=== PATIENT | male | born 1945 | race Caucasian/White ===

== ENCOUNTER → 2016-05-30 | Outpatient (CLI) | payer MEDICARE, BC ==
[2016-05-30 08:28] LABS: CHLORIDE,CL 100 mmol/L (98-110); SODIUM,NA 134 mmol/L (136-146)
== END ==
LOC: MW.CHFP 07:41
PROVIDERS: ATTEND Emergency Medicine
DX: I10 Essential (primary) hypertension (principal); E11.9 Type 2 diabetes mellitus without complications; E78.00 Pure hypercholesterolemia, unspecified; Z79.4 Long term (current) use of insulin; M54.2 Cervicalgia; M54.5 Low back pain
CPT/HCPCS: 36415; 80053; 80061; 82044; 83036; 99214

== ENCOUNTER 2017-06-27 09:24 | Day surgery (SDC) | payer MEDICARE, BC ==
[~2017-06-27 09:24] MED LIST: Lactated Ringers 1,000 ML IV SCH; Lidocaine 2% 5 ML SDV ONE; Propofol 200 MG/20 ML SDV ONE; Sodium Chloride 0.9% 10 ML Syringe FLUSH PRN; Sodium Chloride 0.9% 2.5 ML Syringe FLUSH PRN; fentaNYL 100 MCG/2 ML SDV ONE
--- NOTE | 2017-06-27 09:46 | PCM.PREANE ---
Preanesthetic Assessment - Anesthesia/Transfusion/Family Hx Anesthesia History: Prior Anesthesia Without Reaction Other Type of Anesthesia Reaction Comment: Denies any known problem in past Family History of Anesthesia Reaction: No Transfusion History: No Prior Transfusion(s) - Review of Systems General: No Symptoms Pulmonary: No Symptoms Cardiovascular: No Symptoms Neurological: No Symptoms Other: Reports: None - Physical Assessment NPO Status Date: 06/26/17 Height: 1.83 m Weight: 120.656 kg ASA Class: 2 Mental Status: Alert & Oriented x3 Airway Class: Mallampati = 1 Dentition: Reports: Normal Dentition ROM/Head Extension: Full Lungs: Clear to Auscultation, Normal Respiratory Effort Cardiovascular: Regular Rate, Regular Rhythm - Allergies Allergies/Adverse Reactions: Allergies Allergy/AdvReac Type Severity Reaction Status Date / Time glimepiride [From Amaryl] Allergy Dizziness Verified 06/22/17 12:27 - Anesthesia Plan Pre-Op Medication Ordered: None - Acknowledgements Anesthesia Type Planned: MAC Pt an Appropriate Candidate for the Planned Anesthesia: Yes Alternatives and Risks of Anesthesia Discussed w Pt/Guardian: Yes Pt/Guardian Understands and Agrees with Anesthesia Plan: Yes Additional Comments: PMH: [place] (is not wearing hearing aids today), DM (qHS lantus, am sugar 140), GERD, HTN. EUL[place] (uses CPAP), PreAnesthesia Questionnaire HEENT History: Reports: Hard of Hearing, Other (See Below) Other HEENT History: wears glasses, macario hearing aids Cardiovascular History: Reports: High Cholesterol, Hypertension Respiratory History: Reports: Sleep Apnea Other Respiratory History: uses CPAP Gastrointestinal History: Reports: GERD, Hiatal Hernia Genitourinary History: Reports: None Musculoskeletal History: Reports: Back Pain, Chronic, Fracture, Osteoarthritis Other Musculoskeletal History: fx thumbs Neurological History: Reports: Other (See Below) Other Neuro History: essential tremors Endocrine/Metabolic History: Reports: Diabetes, Type II, Obesity/BMI 30+ Oncologic (Cancer) History: Reports: Basal Cell Carcinoma Dermatologic History: Reports: Eczema - Past Surgical History Head Surgeries/Procedures: Reports: None HEENT Surgical History: Reports: Cataract Surgery, Tonsillectomy Other HEENT Surgeries/Procedures: stapedectomy with stpes prosthesis GI Surgical History: Reports: Colonoscopy Musculoskeletal Surgical History: Reports: Other (See Below) Other Musculoskeletal Surgeries/Procedures:: hx hand surgery Dermatological Surgical History: Reports: Skin Biopsy - SUBSTANCE USE Smoking Status *Q: Never Smoker Days Per Week of Alcohol Use: 0 Number of Drinks Per Day: 0 Total Drinks Per Week: 0 Recreational Drug Use History: No - HOME MEDS Home Medications: Home Meds Aspirin [Halfprin] 1 tab PO DAILY 04/21/14 [History] Clobetasol Propionate/Emoll [Clobetasol Emollnt 0.05% Foam] 1 applic TOP ASDIRECTED 04/21/14 [History] Insulin Glargine,Hum.Rec.Anlog [Lantus Solostar] 1 injection SQ BEDTIME [History] Lisinopril 10 tab PO BEDTIME 04/21/14 [History] Pioglitazone [Actos] 30 mg PO DAILY 04/21/14 [History] Propranolol HCl [Inderal LA] 80 mg PO BRK 04/21/14 [History] Simvastatin [Zocor] 40 mg PO BEDTIME 04/21/14 [History] glipiZIDE [Glipizide ER] 10 mg PO ACBREAKFAST 04/21/14 [History] metFORMIN [Glucophage XR] 1,500 mg PO BIDMEALS 04/21/14 [History] Calcium Carbonate [Calcium] 1 tab PO DAILY 06/22/17 [History] Cholecalciferol (Vitamin D3) [Vitamin D3] 1,000 units PO DAILY 06/22/17 [History ] Cinnamon Bark [Cinnamon] 500 mg PO DAILY 06/22/17 [History] Clobetasol Propionate/Emoll [Olux-E 0.05% Foam] 1 applic TOP ASDIRECTED [History] Diclofenac Sodium [Voltaren] 75 mg PO BID PRN 06/22/17 [History] Fexofenadine HCl 180 mg PO ASDIRECTED PRN 06/22/17 [History] Fish Oil/[place]-3 Fatty Acids [Fish Oil 1,000 MG] 1 tab PO DAILY 06/22/17 [ History] Gabapentin [Neurontin] 600 mg PO DAILY 06/22/17 [History] Glucosamine Sulfate 2KCl [Glucosamine] 1 tab PO BID 06/22/17 [History] Lutein/Minerals/Vit A,C & E [Ocuvite] 1 tab PO DAILY 06/22/17 [History] Multivitamin [Multiple Vitamins] 1 tab PO DAILY 06/22/17 [History] Omeprazole 20 mg PO ASDIRECTED PRN 06/22/17 [History] Primidone 50 mg PO DAILY 06/22/17 [History] diphenhydrAMINE [Benadryl] 1 tab PO BEDTIME 06/22/17 [History] glipiZIDE [Glipizide ER] 5 mg PO BEDTIME 06/22/17 [History] amLODIPine Besylate [Amlodipine Besylate] 10 mg PO DAILY 06/23/17 [History] - CURRENT (IN HOUSE) MEDS Current Meds: Current Medications Lactated Ringer's (Ringers, Lactated) 1,000 mls @ 125 mls/hr IV ASDIRECTED JOSE ANTONIO Sodium Chloride (Saline Flush) 10 ml FLUSH ASDIRECTED PRN PRN Reason: Keep Vein Open Sodium Chloride (Saline Flush) 2.5 ml FLUSH ASDIRECTED PRN PRN Reason: Keep Vein Open Sodium Chloride (Saline Flush) 10 ml FLUSH ASDIRECTED PRN PRN Reason: Keep Vein Open Sodium Chloride (Saline Flush) 2.5 ml FLUSH ASDIRECTED PRN PRN Reason: Keep Vein Open Discontinued Medications Fentanyl (Sublimaze) Confirm Administered Dose 100 mcg .ROUTE .STK-MED ONE Stop: 06/27/17 08:27 Lidocaine (Xylocaine-Mpf 2%) Confirm Administered Dose 5 ml .ROUTE .STK-MED ONE Stop: 06/27/17 08:27 Propofol (Diprivan 20 Ml) Confirm Administered Dose 400 mg .ROUTE .STK-MED ONE Stop: 06/27/17 08:28
[2017-06-27] MEDS ORDERED: Propofol 200 MG/20 ML SDV ONE (11:21)
--- NOTE | 2017-06-27 12:33 | PCM.OPNOTE ---
- General Post-Op/Procedure Note Date of Surgery/Procedure: 06/27/17 Operative Procedure(s): EGD and colonoscopy Findings: Gastritis, hyperplastic gastric polyps, diverticulosis Pre Op Diagnosis: Gastritis, change in bowel habits Post-Op Diagnosis: Gastritis, hyperplastic polyps, diverticulosis Anesthesia Technique: RICARDO Primary Surgeon: Traci Sheets Condition: Good
--- NOTE | 2017-06-27 12:44 | PCM.POSTAN ---
POST ANESTHESIA ASSESSMENT - MENTAL STATUS Mental Status: Alert, Oriented - RESPIRATORY Respiratory Status: Respiratory Rate WNL, Airway Patent, O2 Saturation Stable - CARDIOVASCULAR CV Status: Pulse Rate WNL, Blood Pressure Stable - GASTROINTESTINAL GI Status: No Symptoms - POST OP HYDRATION Hydration Status: Adequate & Stable
--- NOTE | 2017-06-27 12:45 | PCM48HPAN ---
Post Anesthesia Note - EVALUATION WITHIN 48HRS OF ANESTHETIC Vital Signs in Normal Range: Yes Patient Participated in Evaluation: Yes Respiratory Function Stable: Yes Airway Patent: Yes Cardiovascular Function Stable: Yes Hydration Status Stable: Yes Pain Control Satisfactory: Yes Nausea and Vomiting Control Satisfactory: Yes Mental Status Recovered: Yes Resp Rate: 15
[2017-06-27 13:09] VITALS: BP 127/70
--- NOTE | 2017-06-27 22:48 | OR ---
SURGEON: TRACI SHEETS MD DATE OF PROCEDURE: 06/27/2017 PREOPERATIVE DIAGNOSIS: Gastric reflux, change in bowel habits. POSTOPERATIVE DIAGNOSES: 1. Mild gastritis. 2. Hyperplastic gastric polyps in the body of the stomach. 3. Diverticulosis. PROCEDURES PERFORMED: Diagnostic esophagogastroduodenoscopy and colonoscopy. ENDOSCOPIST: Traci Sheets MD ANESTHESIA: MAC. INSTRUMENT USED: Olympus endoscope and colonoscope. EXTENT OF EXAM: To the second portion of the duodenum, to the cecum. PREPARATION: Fair-poor LIMITATIONS: None. INDICATION FOR EXAMINATION: The patient is a 71-year-old male who presents with worsening gastric reflux and change in his bowel habits. The decision was made to perform a diagnostic EGD and colonoscopy. We discussed both procedures as well as their expected perioperative course. We discussed the risks including bleeding, infection, or damage to surrounding structures including perforation. The patient verbalized understanding and wishes to proceed. PROCEDURE IN DETAIL: The patient was brought into the endoscopy suite and placed in a beach chair position. A time-out was completed verifying the patient's name, age, date of , allergies, and procedure to be performed. A bite block was placed in the patient's mouth and monitored anesthesia care was induced. Continuous oxygen was provided via nasal cannula throughout the procedure. After adequate sedation was achieved, a well-lubricated endoscope was placed in the patient's mouth and advanced under direct visualization to the level of second portion of the duodenum. This appeared normal and a photograph was taken. The scope was then fully withdrawn while examining the color, texture, anatomy, and integrity of the mucosa of the upper GI tract. The intestinal mucosa appeared normal. The scope was brought in the stomach and a photograph was taken of the pylorus as well as the GE junction which appeared normal. The patient was noted to have multiple hyperplastic polyps along the body of the stomach. Biopsies were taken of the gastric antrum, body, and fundus as the mucosa appeared to be mildly inflamed. Biopsies were taken of the largest of the hyperplastic polyps, which was still under 1 cm. The scope was then brought into the distal esophagus and a photograph was taken of the Z-line. This appeared normal. The remainder of the esophageal mucosa was free of pathology. The scope was then withdrawn and this portion of procedure was terminated. The patient was then placed in a left lateral decubitus position. A digital rectal exam was performed. This exam was within normal limits. A well- lubricated colonoscope was inserted in the rectum and advanced under direct visualization to the level of the cecum. The cecum was identified by both visual and anatomic landmarks. A photograph was taken of the cecal cap, however, I was unable to retroflex the scope within the cecum due to looping of the scope more proximally. The scope was then fully withdrawn while examining the color, texture, anatomy, and integrity of the mucosa from the cecum to the anal canal. My examination was limited by the poor prep in the ascending and transverse colon. A large amount of irrigation was performed to identify any smaller lesions. The patient was noted to have diverticulosis throughout the colon. The remainder of the exam appeared normal. The scope was brought into the rectum and retroflexed to allow visualization of the anal canal opening. This appeared normal and a photograph was taken. The cecum to anus time was greater than 6 minutes. The scope was then straightened out and fully withdrawn. The patient tolerated the procedure well and was taken to PACU in stable condition. ENDOSCOPIC DIAGNOSES: 1. Mild gastritis. 2. Hyperplastic gastric polyps in the body of the stomach. 3. Diverticulosis. RECOMMENDATIONS: Follow up in clinic in 2 weeks. YOLANDA CEJA /[id number] MERRILL
== END 2017-06-27 13:00 | disposition home or self-care (01) ==
LOC: MW.SDS 09:24
PROVIDERS: ATTEND Surgery
DX: K29.50 Unspecified chronic gastritis without bleeding (principal); K31.7 Polyp of stomach and duodenum; K57.30 Diverticulosis of large intestine without perforation or abscess without bleeding; K21.9 Gastro-esophageal reflux disease without esophagitis; I10 Essential (primary) hypertension; G47.33 Obstructive sleep apnea (adult) (pediatric); E78.00 Pure hypercholesterolemia, unspecified; M19.90 Unspecified osteoarthritis, unspecified site; G25.0 Essential tremor; E11.40 Type 2 diabetes mellitus with diabetic neuropathy, unspecified; E66.9 Obesity, unspecified; Z68.36 Body mass index [BMI] 36.0-36.9, adult; Z79.4 Long term (current) use of insulin; Z79.82 Long term (current) use of aspirin; Z79.899 Other long term (current) drug therapy; Z88.8 Allergy status to other drugs, medicaments and biological substances; Z99.89 Dependence on other enabling machines and devices
CPT/HCPCS: 00731; 82962; 88305; 88312; J2704; J3010; J7120

== ENCOUNTER 2020-04-01 16:15 | Emergency (ER) | payer MEDICARE, BC ==
[2020-04-01] MEDS ORDERED: ceFAZolin 1 GM in Premix Bag 1 BAG IV ONE (16:32)
[2020-04-01] MEDS ORDERED: Sodium Chloride 0.9% 2.5 ML Syringe FLUSH PRN (16:32)
[2020-04-01] MEDS ORDERED: Sodium Chloride 0.9% 10 ML Syringe FLUSH PRN (16:32)
[2020-04-01] MEDS ORDERED: Diphtheria,Pertussis(Acell),Tetanus Vaccine 0.5 ML Syringe IM ONE (16:48)
--- NOTE | 2020-04-01 16:52 | EDM.PDOC ---
ED HPI GENERAL MEDICAL PROBLEM - General Chief Complaint: Upper Extremity Injury/Pain Stated Complaint: FINGER RT HAND LACERATION Time Seen by Provider: 04/01/20 16:16 Source of Information: Reports: Patient History Limitations: Reports: No Limitations - History of Present Illness INITIAL COMMENTS - FREE TEXT/NARRATIVE: 74-year-old male past medical history obesity, diabetes, hypertension presents for left third digit amputation injury. Patient was using a soaker meat when he accidentally stuck his hand in a soaker meat. He was able to save the distal tip of his finger which is relatively intact. He denies any other injuries. He is uncertain of his last tetanus vaccination. Left middle finger Pain Score (Numeric/FACES): 0 - Related Data Allergies Allergy/AdvReac Type Severity Reaction Status Date / Time glimepiride [From Amaryl] Allergy Dizziness Verified 04/01/20 16:40 Home Meds: Home Meds Aspirin [Halfprin] 1 tab PO DAILY 04/21/14 [History] Clobetasol Propionate/Emoll [Clobetasol Emollnt 0.05% Foam] 1 applic TOP ASDIRECTED 04/21/14 [History] Insulin Glargine,Hum.Rec.Anlog [Lantus Solostar] 1 injection SQ BEDTIME 04/21/14 [History] Lisinopril 10 tab PO BEDTIME 04/21/14 [History] Pioglitazone [Actos] 30 mg PO DAILY 04/21/14 [History] Propranolol HCl [Inderal LA] 80 mg PO BRK 04/21/14 [History] Simvastatin [Zocor] 40 mg PO BEDTIME 04/21/14 [History] glipiZIDE [Glipizide ER] 10 mg PO ACBREAKFAST 04/21/14 [History] metFORMIN [Glucophage XR] 1,500 mg PO BIDMEALS 04/21/14 [History] Calcium Carbonate [Calcium] 1 tab PO DAILY 06/22/17 [History] Cholecalciferol (Vitamin D3) [Vitamin D3] 1,000 units PO DAILY 06/22/17 [History] Cinnamon Bark [Cinnamon] 500 mg PO DAILY 06/22/17 [History] Clobetasol Propionate/Emoll [Olux-E 0.05% Foam] 1 applic TOP ASDIRECTED 06/22/17 [History] Diclofenac Sodium [Voltaren] 75 mg PO BID PRN 06/22/17 [History] Fexofenadine HCl 180 mg PO ASDIRECTED PRN 06/22/17 [History] Fish Oil/[place]-3 Fatty Acids [Fish Oil 1,000 MG] 1 tab PO DAILY 06/22/17 [History] Gabapentin [Neurontin] 600 mg PO DAILY 06/22/17 [History] Glucosamine Sulfate Dipot Chlr [Glucosamine] 1 tab PO BID 06/22/17 [History] Lutein/Minerals/Vit A,C & E [Ocuvite] 1 tab PO DAILY 06/22/17 [History] Multivitamin [Multiple Vitamins] 1 tab PO DAILY 06/22/17 [History] Omeprazole 20 mg PO ASDIRECTED PRN 06/22/17 [History] Primidone 50 mg PO DAILY 06/22/17 [History] diphenhydrAMINE [Benadryl] 1 tab PO BEDTIME 06/22/17 [History] glipiZIDE [Glipizide ER] 5 mg PO BEDTIME 06/22/17 [History] amLODIPine Besylate [Amlodipine Besylate] 10 mg PO DAILY 06/23/17 [History] cephALEXin [Keflex] 500 mg PO Q8H 7 Days #21 cap 04/01/20 [Rx] oxyCODONE HCl/Acetaminophen [Percocet 5-325 mg Tablet] 1 each PO Q4H PRN #18 tablet 04/01/20 [Rx] Past Medical History HEENT History: Reports: Hard of Hearing, Other (See Below) Other HEENT History: wears glasses, macario hearing aids Cardiovascular History: Reports: Hypertension Respiratory History: Reports: Sleep Apnea Other Respiratory History: uses CPAP Gastrointestinal History: Reports: GERD, Hiatal Hernia Genitourinary History: Reports: None Musculoskeletal History: Reports: Back Pain, Chronic, Fracture, Osteoarthritis Other Musculoskeletal History: fx thumbs Neurological History: Reports: Other (See Below) Other Neuro History: essential tremors Endocrine/Metabolic History: Reports: Diabetes, Type II Oncologic (Cancer) History: Reports: Basal Cell Carcinoma Dermatologic History: Reports: Eczema - Infectious Disease History Infectious Disease History: Reports: None - Past Surgical History Head Surgeries/Procedures: Reports: None HEENT Surgical History: Reports: Cataract Surgery, Tonsillectomy Other HEENT Surgeries/Procedures: stapedectomy with stpes prosthesis GI Surgical History: Reports: Colonoscopy Musculoskeletal Surgical History: Reports: Other (See Below) Other Musculoskeletal Surgeries/Procedures:: hx hand surgery Dermatological Surgical History: Reports: Skin Biopsy Social & Family History - Family History Family Medical History: No Pertinent Family History - Tobacco Use Tobacco Use Status *Q: Never Tobacco User - Recreational Drug Use Recreational Drug Use: No Review of Systems - Review of Systems Review Of Systems: Comprehensive ROS is negative, except as noted in HPI. ED EXAM, GENERAL - Physical Exam Exam: See Below Exam Limited By: No Limitations General Appearance: Alert, WD/WN, No Apparent Distress Throat/Mouth: Normal Voice, No Airway Compromise Head: Atraumatic, Normocephalic Respiratory/Chest: No Respiratory Distress, No Accessory Muscle Use Cardiovascular: Normal Peripheral Pulses Extremities: Other (fingertip amputation injury to L 3rd digit, nail germinal matrix intact, no bony protuberance) Neurological: Alert, Normal Gait Psychiatric: Normal Affect, Normal Mood Course - Vital Signs Last Recorded V/S: Last Vital Signs Temp 97.0 F 04/01/20 16:40 Pulse 87 04/01/20 16:40 Resp 18 04/01/20 16:40 BP 182/91 H 04/01/20 16:40 Pulse Ox 97 04/01/20 16:40 - Orders/Labs/Meds Orders: Active Orders 24 hr Category Date Time Status Vaccines to be Administered [RC] PER UNIT ROUTINE Care 04/01/20 16:48 Active Sodium Chloride 0.9% [Saline Flush] Med 04/01/20 16:32 Active 10 ml FLUSH ASDIRECTED PRN Sodium Chloride 0.9% [Saline Flush] Med 04/01/20 16:32 Active 2.5 ml FLUSH ASDIRECTED PRN ceFAZolin [Ancef 1 GM/50 ML] 1 gm Med 04/01/20 16:32 Active Premix Bag 1 bag IV ONETIME Saline Lock Insert [OM.PC] Stat Oth 04/01/20 16:32 Ordered Medication Orders Cefazolin Sodium/Dextrose 1 gm (/ Premix) 50 mls @ 100 mls/hr IV ONETIME ONE Stop: 04/01/20 17:01 Last Admin: 04/01/20 16:55 Dose: 100 mls/hr Documented by: [id number] Sodium Chloride (Saline Flush) 10 ml FLUSH ASDIRECTED PRN PRN Reason: Keep Vein Open Last Admin: 04/01/20 16:39 Dose: 10 ml Documented by: [id number] Sodium Chloride (Saline Flush) 2.5 ml FLUSH ASDIRECTED PRN PRN Reason: Keep Vein Open Last Admin: 04/01/20 16:39 Dose: 2.5 ml Documented by: [id number] Meds: Medications Generic Name Dose Route Start Last Admin Trade Name Freq PRN Reason Stop Dose Admin Cefazolin Sodium/Dextrose 1 gm 50 mls @ 100 mls/hr 04/01/20 16:32 04/01/20 16:55 / Premix IV 04/01/20 17:01 100 mls/hr ONETIME ONE Administration Sodium Chloride 10 ml 04/01/20 16:32 04/01/20 16:39 Saline Flush FLUSH 10 ml ASDIRECTED PRN Administration Keep Vein Open Sodium Chloride 2.5 ml 04/01/20 16:32 04/01/20 16:39 Saline Flush FLUSH 2.5 ml ASDIRECTED PRN Administration Keep Vein Open Discontinued Medications Generic Name Dose Route Start Last Admin Trade Name Freq PRN Reason Stop Dose Admin Diphtheria/Tetanus/Acell Pertussis 0.5 ml 04/01/20 16:48 04/01/20 16:54 Boostrix IM 04/01/20 16:49 0.5 ml .ONCE ONE Administration - Re-Assessments/Exams Free Text/Narrative Re-Assessment/Exam: 04/01/20 17:[address] Booth who has reviewed images of the patient's hand. Recommends nonadherent dressing and follow-up with hand surgery in [place]. Information provided to patient. Will give 1 dose of Ancef in the ED as well as a tetanus booster and will DC with p.o. antibiotics. Departure - Departure Time of Disposition: 16:49 Disposition: Home, Self-Care 01 Condition: Good Clinical Impression: Fingertip avulsion Qualifiers: Encounter type: initial encounter Qualified Code(s): S61.209A - Unspecified open wound of unspecified finger without damage to nail, initial encounter - Discharge Information Prescriptions: cephALEXin [Keflex] 500 mg PO Q8H 7 Days #21 cap Instructions: Traumatic Finger Amputation Referrals: Chu Whitt MD [Primary Care Provider] - Forms: ED Department Discharge Additional Instructions: You have suffered a traumatic fingertip amputation. You were given 1 dose of IV antibiotics and you were sent home on oral antibiotics. You need to follow-up with a hand surgeon as this will likely require surgery for proper healing. [facility] Dr. Rachel Swanson MD [phone] [facility] [place] [address] [address] Floor The following information is given to patients seen in the emergency department who are being discharged to home. This information is to outline your options for follow-up care. We provide all patients seen in our emergency department with a follow-up referral. The need for follow-up, as well as the timing and circumstances, are variable depending upon the specifics of your emergency department visit. If you don't have a primary care physician on staff, we will provide you with a referral. We always advise you to contact your personal physician following an emergency department visit to inform them of the circumstance of the visit and for follow-up with them and/or the need for any referrals to a consulting specialist. The emergency department will also refer you to a specialist when appropriate. This referral assures that you have the opportunity for follow-up care with a specialist. All of these measure are taken in an effort to provide you with optimal care, which includes your follow-up. Under all circumstances we always encourage you to contact your private physician who remains a resource for coordinating your care. When calling for follow-up care, please make the office aware that this follow-up is from your recent emergency room visit. If for any reason you are refused follow-up, please contact the [facility] Emergency Department at and asked to speak to the emergency department charge nurse. Please follow up with your primary care physician. If you do not have a primary care physician, see below: [facility] [address] [place] [id number] [facility] [address] [place] [address] [facility] [address] [place] [address] Sepsis Event Note (ED) - Evaluation Sepsis Screening Result: No Definite Risk - Focused Exam Vital Signs: Vital Signs Temp Pulse Resp BP Pulse Ox 04/01/20 16:40 97.0 F 87 18 182/91 H 97 - My Orders Last 24 Hours: My Active Orders 04/01/20 16:32 Sodium Chloride 0.9% [Saline Flush] 10 ml FLUSH ASDIRECTED PRN Sodium Chloride 0.9% [Saline Flush] 2.5 ml FLUSH ASDIRECTED PRN ceFAZolin [Ancef 1 GM/50 ML] 1 gm Premix Bag 1 bag IV ONETIME Saline Lock Insert [OM.PC] Stat 04/01/20 16:48 Vaccines to be Administered [RC] PER UNIT ROUTINE - Assessment/Plan Last 24 Hours: My Active Orders 04/01/20 16:32 Sodium Chloride 0.9% [Saline Flush] 10 ml FLUSH ASDIRECTED PRN Sodium Chloride 0.9% [Saline Flush] 2.5 ml FLUSH ASDIRECTED PRN ceFAZolin [Ancef 1 GM/50 ML] 1 gm Premix Bag 1 bag IV ONETIME Saline Lock Insert [OM.PC] Stat 04/01/20 16:48 Vaccines to be Administered [RC] PER UNIT ROUTINE
--- NOTE | 2020-04-01 16:53 | CR ---
Indication: Finger tip avulsion Comparison: None available. Technique: AP and lateral views left hand were obtained Findings: There is traumatic avulsion at the distal 3rd phalanx. No other displaced fractures appreciated. The joint spaces are grossly preserved. There is mild superficial soft tissue swelling. Impression: Superficial soft tissue swelling of the distal 3rd digit with traumatic avulsion of the distal 3rd phalanx. Dictated by Alexis Burgos MD @ Apr 01 2020 4:50PM Signed by Dr. Alexis Burgos @ Apr 01 2020 4:51PM
[2020-04-01 18:10] VITALS: BP 155/49; PULSE 81
== END 2020-04-01 18:10 | disposition home or self-care (01) ==
LOC: MW.ED 16:15
DX: S61.303A Unspecified open wound of left middle finger with damage to nail, initial encounter (principal); I10 Essential (primary) hypertension; E11.9 Type 2 diabetes mellitus without complications; K21.9 Gastro-esophageal reflux disease without esophagitis; E66.9 Obesity, unspecified; Z79.4 Long term (current) use of insulin; Z88.8 Allergy status to other drugs, medicaments and biological substances; Z79.82 Long term (current) use of aspirin; Z79.899 Other long term (current) drug therapy; Z23 Encounter for immunization; Z68.35 Body mass index [BMI] 35.0-35.9, adult; W31.9XXA Contact with unspecified machinery, initial encounter
CPT/HCPCS: 73120; 90471; 96365; 99283; J0690

== ENCOUNTER 2020-04-17 11:58 | Emergency (ER) | payer MEDICARE, BC ==
[2020-04-17] MEDS ORDERED: Ketorolac 30 MG/ML SDV IVPUSH ONE (12:35)
--- NOTE | 2020-04-17 12:53 | CR ---
Indication: Recent injury Comparison: Three views left fingers April 01, 2020 Technique: AP, Lateral, and Oblique views left 3rd digit were obtained Findings: Again seen is traumatic amputation of the distal 3rd phalanx with bony fragments. There is no new acute osseous abnormality. The joint spaces are grossly preserved. There is persistent fusiform soft tissue swelling of the 3rd digit. Impression: Re-demonstration of traumatic amputation of the distal 3rd digit with persistent fusiform soft tissue swelling and small residual bony fragments. Dictated by Alexis Burgos MD @ Apr 17 2020 12:45PM Signed by Dr. Alexis Burgos @ Apr 17 2020 12:51PM
--- NOTE | 2020-04-17 13:36 | EDM.PDOC ---
ED HPI GENERAL MEDICAL PROBLEM - General Chief Complaint: Upper Extremity Injury/Pain Stated Complaint: POSSIBLE INFECTION FINGER Time Seen by Provider: 04/17/20 12:05 - History of Present Illness INITIAL COMMENTS - FREE TEXT/NARRATIVE: CHIEF COMPLAINT(S): Possible finger infection HISTORY OF PRESENT ILLNESS: This is a 74-year-old man with a past medical history of hypertension, hyperlipidemia with recent distal third right digit avulsion status post flap repair who comes to the emergency department with a chief complaint of possible finger infection. The patient states that he had a surgery approximately 2 weeks ago after cutting off his right third distal finger. He states that they did a flap and sutured it. He states that he was prescribed Keflex 3 times a day and was told to call if anything change. He states that starting since last night he started to notice that there was some pus drainage which is white from the distal tip of his finger. He states that there is some tenderness but it has not increased and there is some redness at the distal tip but it has not spread. He describes his pain as 2-4 out of 10 without any radiation up his arm. He denies any numbness, tingling, weakness. He states that he called Dr. Gibson's office and he is in surgery all day so they told him to come to the emergency department for us to contact them if he had any questions. REVIEW OF SYSTEMS: Skin: Positive for purulent drainage coming out of third right distal finger MSK: Positive for right finger pain Neurological: Denies numbness, tingling, weakness PAST MEDICAL HISTORY: As per history of present illness and as reviewed below otherwise noncontributory. SURGICAL HISTORY: As per history of present illness and as reviewed below otherwise noncontributory. SOCIAL HISTORY: As per history of present illness and as reviewed below otherwise noncontributory. FAMILY HISTORY: As per history of present illness and as reviewed below otherwise noncontributory. EXAMINATION OF ORGAN SYSTEMS/BODY AREAS: Constitutional: Blood pressure is 160/107, heart rate 77, respiratory rate 18 with an oxygen saturation 98% on room air. Temperature 35.8 General: Overall well-appearing man who is in no acute distress. Psychiatric: Appropriate mood and affect. Eyes: No scleral icterus or conjunctival erythema ENMT: Moist mucous membranes. No pharyngeal erythema Cardiovascular: Regular, rate, and rhythm. No gallops, murmurs, or rubs. Bilateral upper extremity pulses symmetric and intact. Respiratory: Lungs clear to auscultation bilaterally. No wheezes, rales, or rhonchi. Musculoskeletal: The patient has full range of motion of his right third digit. The DIP is missing secondary to avulsion. There is some purulent drainage/white-colored drainage coming out of the underneath side of the nail where the flap is sutured. Otherwise the other part of the flap looks well- healing. There is some distal erythema of the finger which the patient states is unchanged. Mild tenderness to palpation. Skin: As noted above Neurological: Alert, GCS 15 distal sensation is intact MEDICAL DECISION MAKING AND COURSE IN THE ED WITH INTERPRETATION/REVIEW OF DIAGNOSTIC STUDIES: This is a 74-year-old man with a past medical history of hypertension hyperlipidemia with recent avulsion of his third right digit at the DIP status post flap who comes to the emergency department with concern for possible distal right tip finger infection. At this time will obtain a repeat right finger x-ray and obtain labs including CBC, CRP and ESR. Laboratory: CBC is unremarkable. CRP is 0.30. The radiological images were viewed by myself along with reading the report from the radiologist. Right third digit x-ray reveals redemonstration of traumatic amputation of the distal third digit with persistent fusiform swelling and small residual bony fragments. No acute osseous abnormality. After labs and imaging I did contact [facility] in [place] and spoke with Dr. Riley who is a partner of his surgeon. I did discuss my findings and imaging and laboratory results. At this time he stated that he should continue with Keflex until follow-up. I did discuss the results with the patient and my discussion with the surgeons. I provided the patient with a prescription for continued use of Keflex and they were instructed to return for any new or worsening symptoms. They are amenable to discharge at this time and had no further questions. DISPOSITION: The patient was discharged home in stable condition. The patient will follow up with surgeon on their scheduled appointment in approximately 4 days CONDITION: Fair PROCEDURES: None FINAL IMPRESSION(S)/DIAGNOSES: 1. Acute possible right distal third digit purulent infection Perez Kauffman M.D. Right Finger-Middle Pain Score (Numeric/FACES): 2 - Related Data Allergies Allergy/AdvReac Type Severity Reaction Status Date / Time glimepiride [From Amaryl] Allergy Dizziness Verified 04/17/20 12:15 Home Meds: Home Meds Aspirin 81 mg PO DAILY 04/01/20 [History] Calcium Carbonate [Calcium] 1 tab PO ASDIRECTED 04/01/20 [History] Cholecalciferol (Vitamin D3) [Vitamin D] 1,000 mg PO DAILY 04/01/20 [History] Clobetasol Propionate/Emoll [Olux-E 0.05% Foam] 1 dose TOP ASDIRECTED 04/01/20 [History] Clobetasol [Clobetasol Propionate 0.05%] 1 dose TOP ASDIRECTED 04/01/20 [History] Diclofenac Sodium 75 mg PO BID 04/01/20 [History] Fexofenadine HCl 180 mg PO DAILY 04/01/20 [History] Fish Oil/[place]-3 Fatty Acids [Fish Oil 1,000 MG] 1 cap PO DAILY 04/01/20 [History] Gabapentin [Neurontin] 600 mg PO ASDIRECTED 04/01/20 [History] Glucosamine HCl [Glucosamine] 1,000 mg PO BID 04/01/20 [History] Insulin Aspart [NovoLOG] 1 dose INJECT ASDIRECTED 04/01/20 [History] Insulin Glargine,Hum.Rec.Anlog [Lantus Solostar] 50 unit SQ BEDTIME 04/01/20 [History] Lutein/Minerals/Vit A,C & E [Ocuvite] 1 tab PO DAILY 04/01/20 [History] Multivitamins/Minerals [Vitamins and Minerals] 1 tab PO DAILY 04/01/20 [History] Omeprazole 20 mg PO DAILY 04/01/20 [History] Pioglitazone HCl 30 mg PO DAILY 04/01/20 [History] Propranolol HCl 80 mg PO DAILY 04/01/20 [History] Simvastatin 40 mg PO BEDTIME 04/01/20 [History] cephALEXin [Keflex] 500 mg PO Q8H 7 Days #21 cap 04/01/20 [Rx] diphenhydrAMINE [Benadryl] 1 tab PO ASDIRECTED 04/01/20 [History] lisinopriL [Lisinopril] 0.5 tab PO DAILY 04/01/20 [History] metFORMIN HCl [Metformin HCl] 2.5 tab PO BID 04/01/20 [History] oxyCODONE HCl/Acetaminophen [Percocet 5-325 mg Tablet] 1 each PO Q4H PRN #18 tablet 04/01/20 [Rx] cephALEXin [Keflex] 500 mg PO Q8H #12 cap 04/17/20 [Rx] Past Medical History HEENT History: Reports: Hard of Hearing, Other (See Below) Other HEENT History: wears glasses, macario hearing aids Cardiovascular History: Reports: Hypertension Respiratory History: Reports: Sleep Apnea Other Respiratory History: uses CPAP Gastrointestinal History: Reports: GERD, Hiatal Hernia Genitourinary History: Reports: None Musculoskeletal History: Reports: Back Pain, Chronic, Fracture, Osteoarthritis Other Musculoskeletal History: fx thumbs Neurological History: Reports: Other (See Below) Other Neuro History: essential tremors Endocrine/Metabolic History: Reports: Diabetes, Type II Oncologic (Cancer) History: Reports: Basal Cell Carcinoma Dermatologic History: Reports: Eczema - Infectious Disease History Infectious Disease History: Reports: None - Past Surgical History Head Surgeries/Procedures: Reports: None HEENT Surgical History: Reports: Cataract Surgery, Tonsillectomy Other HEENT Surgeries/Procedures: stapedectomy with stpes prosthesis GI Surgical History: Reports: Colonoscopy Musculoskeletal Surgical History: Reports: Other (See Below) Other Musculoskeletal Surgeries/Procedures:: hx hand surgery Dermatological Surgical History: Reports: Skin Biopsy Social & Family History - Family History Family Medical History: No Pertinent Family History - Tobacco Use Tobacco Use Status *Q: Never Tobacco User - Caffeine Use Caffeine Use: Reports: None - Recreational Drug Use Recreational Drug Use: No Review of Systems - Review of Systems Review Of Systems: See Below ED EXAM, GENERAL - Physical Exam Exam: See Below Course - Vital Signs Last Recorded V/S: Last Vital Signs Temp 35.8 C L 04/17/20 12:15 Pulse 69 04/17/20 13:45 Resp 18 04/17/20 13:45 BP 171/84 H 04/17/20 13:45 Pulse Ox 95 04/17/20 13:45 - Orders/Labs/Meds Orders: Active Orders 24 hr Category Date Time Status CULTURE WOUND [RM] Stat Lab 04/17/20 12:21 Received Labs: Laboratory Tests 04/17/20 04/17/20 04/17/20 Range/Units 12:48 12:48 12:48 WBC 9.65 (4.0-11.0) K/uL RBC 4.63 (4.50-5.90) M/uL Hgb 13.4 (13.0-17.0) g/dL Hct 40.6 (38.0-50.0) % MCV 87.7 (80.0-98.0) fL MCH 28.9 (27.0-32.0) pg MCHC 33.0 (31.0-37.0) g/dL RDW Std Deviation 42.3 (28.0-62.0) fl RDW Coeff of Meagan 13 (11.0-15.0) % Plt Count 341 (150-400) K/uL MPV 10.30 (7.40-12.00) fL Neut % (Auto) 78.4 (48.0-80.0) % Lymph % (Auto) 12.3 L (16.0-40.0) % [place] % (Auto) 6.9 (0.0-15.0) % Eos % (Auto) 2.0 (0.0-7.0) % Baso % (Auto) 0.4 (0.0-1.5) % Neut # (Auto) 7.6 H (1.4-5.7) K/uL Lymph # (Auto) 1.2 (0.6-2.4) K/uL [place] # (Auto) 0.7 (0.0-0.8) K/uL Eos # (Auto) 0.2 (0.0-0.7) K/uL Baso # (Auto) 0.0 (0.0-0.1) K/uL Nucleated RBC % 0.0 /100WBC Nucleated RBCs # 0 K/uL ESR 1 (0-19) mm/hr C-Reactive Protein 0.30 (0.00-0.90) mg/dL Meds: Medications Discontinued Medications Generic Name Dose Route Start Last Admin Trade Name Freq PRN Reason Stop Dose Admin Ketorolac Tromethamine 15 mg 04/17/20 12:35 04/17/20 12:58 Toradol IVPUSH 04/17/20 12:36 Not Given ONETIME ONE Departure - Departure Time of Disposition: 13:32 Disposition: Home, Self-Care 01 Condition: Fair Clinical Impression: Finger infection - Discharge Information *PRESCRIPTION DRUG MONITORING PROGRAM REVIEWED*: No *COPY OF PRESCRIPTION DRUG MONITORING REPORT IN PATIENT ALONZO: No Prescriptions: cephALEXin [Keflex] 500 mg PO Q8H #12 cap Instructions: Cellulitis, Adult, Pain Medicine Instructions, [id number] Referrals: Chu Whitt MD [Primary Care Provider] - Forms: ED Department Discharge Additional Instructions: Your evaluated today on an emergent basis. At this time in discussion with Dr. Gibson's partner Dr. Rilye who recommended at this time to use Keflex 500 mg 3 times a day and to follow-up at your scheduled appointment on Monday. In discussion he would like you to keep your wound clean and dry and continue to do what you have been doing. If the redness increases down your finger, the pain worsens or the pus drainage increases please return to the emergency department. Please keep your appointment on Monday. The patient is informed of any results of their evaluation and diagnostic workup and all questions are answered. They are given discharge instructions and return precautions. The patient is stable for discharge. The patient states they understand and agree with the plan and that they will return if their symptoms get worse or if they have any new concerns. The following information is given to patients seen in the emergency department who are being discharged to home. This information is to outline your options for follow-up care. We provide all patients seen in our emergency department with a follow-up referral. The need for follow-up, as well as the timing and circumstances, are variable depending upon the specifics of your emergency department visit. If you don't have a primary care physician on staff, we will provide you with a referral. We always advise you to contact your personal physician following an emergency department visit to inform them of the circumstance of the visit and for follow-up with them and/or the need for any referrals to a consulting specialist. The emergency department will also refer you to a specialist when appropriate. This referral assures that you have the opportunity for follow-up care with a specialist. All of these measure are taken in an effort to provide you with optimal care, which includes your follow-up. Under all circumstances we always encourage you to contact your private physician who remains a resource for coordinating your care. When calling for follow-up care, please make the office aware that this follow-up is from your recent emergency room visit. If for any reason you are refused follow-up, please contact the [facility] Emergency Department at and asked to speak to the emergency department charge nurse. Sepsis Event Note (ED) - Evaluation Sepsis Screening Result: No Definite Risk - My Orders Last 24 Hours: My Active Orders 04/17/20 12:21 CULTURE WOUND [RM] Stat - Assessment/Plan Last 24 Hours: My Active Orders 04/17/20 12:21 CULTURE WOUND [RM] Stat
[2020-04-17 20:06] VITALS: BP 171/84; PULSE 69
== END 2020-04-17 13:52 | disposition home or self-care (01) ==
LOC: MW.ED 11:58
DX: L08.9 Local infection of the skin and subcutaneous tissue, unspecified (principal); I10 Essential (primary) hypertension; E78.5 Hyperlipidemia, unspecified; K21.9 Gastro-esophageal reflux disease without esophagitis; E11.9 Type 2 diabetes mellitus without complications; Z79.4 Long term (current) use of insulin; Z79.899 Other long term (current) drug therapy; Z88.8 Allergy status to other drugs, medicaments and biological substances; Z79.82 Long term (current) use of aspirin; M19.90 Unspecified osteoarthritis, unspecified site
CPT/HCPCS: 36415; 73140-26-F2; 73140-F2; 85025; 85652; 86140; 87070; 87077; 87186; 99283; 99284

== ENCOUNTER 2023-07-18 08:15 | Day surgery (SDC) | payer MEDICARE, BC ==
[~2023-07-18 08:15] MED LIST changes: -Lactated Ringers 1,000 ML IV SCH; -Lidocaine 2% 5 ML SDV ONE; -Propofol 200 MG/20 ML SDV ONE; +Sodium Chloride 0.9% 20 ML SDV IV PRN; -fentaNYL 100 MCG/2 ML SDV ONE
[2023-07-18] MEDS: Lactated Ringers 1,000 ML IV SCH (08:55)
[2023-07-18] MEDS ORDERED: propofoL 50 ML ONE (09:53)
[2023-07-18 12:31] VITALS: BP 117/66; PULSE 70
== END 2023-07-18 11:02 | disposition home or self-care (01) ==
LOC: MW.SDS 08:15
PROVIDERS: ATTEND Surgery
DX: K62.1 Rectal polyp (principal); E11.40 Type 2 diabetes mellitus with diabetic neuropathy, unspecified; K21.9 Gastro-esophageal reflux disease without esophagitis; I10 Essential (primary) hypertension; E78.00 Pure hypercholesterolemia, unspecified; G47.33 Obstructive sleep apnea (adult) (pediatric); Z79.82 Long term (current) use of aspirin; Z79.4 Long term (current) use of insulin; Z79.899 Other long term (current) drug therapy; Z88.2 Allergy status to sulfonamides
CPT/HCPCS: 45380; 88305; J2704; J7120; 00811; 45385; 99100